=== PATIENT | female | born 1970 ===

== ENCOUNTER 2016-06-16 02:57 | Emergency (ER) | payer MEDICAID ==
[2016-06-16 03:13] VITALS: BP 122/68; PULSE 65; RESP 18; TEMP 97.8; O2SAT 97
--- NOTE | 2016-06-16 03:35 | ED PDOC ---
HPI: Dental Pain/Injury Time Seen by Provider: 06/16/16 03:15 Chief Complaint (Nursing): Dental Pain Chief Complaint (Provider): toothache History Per: Patient History/Exam Limitations: no limitations Onset/Duration Of Symptoms: Days (2) Current Symptoms Are (Timing): Still Present Dental: 1 - pain Additional History Per: Patient Additional Complaint(s): 45 y/o female presents with right upper toothache x 2 days. Patient taking over the counter ibuprofen/tylenol without improvement. Patient states she had dental appt today and it was cancelled. Denies fever, facial pain/swelling, difficulty speaking/swallowing. Past Medical History Reviewed: Historical Data, Nursing Documentation, Vital Signs Vital Signs: Last Vital Signs Temp 97.8 F 06/16/16 03:09 Pulse 65 06/16/16 03:09 Resp 18 06/16/16 03:09 BP 122/68 06/16/16 03:09 Pulse Ox 97 06/16/16 03:09 - Medical History PMH: HTN, Hypercholesterolemia, Migraine - Family History Family History: States: Unknown Family Hx - Immunization History Hx Tetanus Toxoid Vaccination: No Hx Influenza Vaccination: Yes Hx Pneumococcal Vaccination: Yes - Home Medications Home Medications: Ambulatory Orders Medication Instructions Recorded Ondansetron ODT [Zofran ODT] 1 odt PO BID PRN #10 odt 08/05/15 oxyCODONE/Acetaminophen [Percocet 1 tab PO QID PRN #10 tab 08/05/15 5/325 mg Tab] Amoxicillin/Clavulanate [Augmentin 1 tab PO Q12 #14 tab 06/16/16 875 MG-125 MG] - Allergies Allergies/Adverse Reactions: Allergies Allergy/AdvReac Type Severity Reaction Status Date / Time No Known Allergies Allergy Verified 08/04/15 23:17 Review of Systems ROS Statement: Except As Marked, All Systems Reviewed And Found Negative ENT: Positive for: Mouth Pain Physical Exam - Reviewed Nursing Documentation Reviewed: Yes Vital Signs Reviewed: Yes - Physical Exam Appears: Positive for: Well, Non-toxic, No Acute Distress Head Exam: Positive for: ATRAUMATIC, NORMAL INSPECTION, NORMOCEPHALIC Skin: Positive for: Normal Color Eye Exam: Positive for: Normal appearance ENT: Positive for: Other (multiple dental caries. Tender to touch right upper 1st molar with + gum tenderness. No swelling, abscess formation noted. No swelling/facial erythema noted) - ECG O2 Sat by Pulse Oximetry: 97 - Progress ED Course And Treament: Toradol IM Patient states she has Tramadol at home from previous knee injury; advised can take PRN severe pain. Advised Tylenol or Ibuprofen PRN moderate pain. Rx Augmentin provided Follow up Dentist. Return to ED for worsening/concerning symptoms. Disposition - Clinical Impression Clinical Impression: Toothache, Dental caries - Patient ED Disposition Is Patient to be Admitted: No Counseled Patient/Family Regarding: Diagnosis, Need For Followup, Rx Given - Disposition Disposition: Routine/Home Disposition Time: 03:41 Condition: GOOD Prescriptions: Amoxicillin/Clavulanate [Augmentin 875 MG-125 MG] 1 tab PO Q12 #14 tab Instructions: Toothache (ED), Dental Caries (ED) Print Language: SLOVENIAN
== END 2016-06-16 04:13 | disposition home or self-care (01) ==
LOC: H.ER 02:57
DX: K02.9 Dental caries, unspecified (principal); I10 Essential (primary) hypertension; E78.00 Pure hypercholesterolemia, unspecified